=== PATIENT | female | born 2000 | race Caucasian/White ===

== ENCOUNTER 2025-01-04 16:58 | Emergency (ER) | payer OTHER, SELFPAY ==
[2025-01-04 17:00] VITALS: BP 161/98
[2025-01-04 17:20] LABS: % Basophils 0.3 % (0-2); % Eosinophils 0.6 % (0-6); % Immature Granulocytes 0.3 % (0-0.5); % Lymphocytes 43.7 % (20.5-51.1); % Monocytes 6.1 % (1.7-9.3); Absolute Lymphocytes 1.6 10^3/uL (1.2-3.4); Absolute Monocytes 0.2 10^3/uL (0.1-0.6); Absolute Neutrophils 1.8 10^3/uL (1.4-6.5); Hematocrit 38.4 % (37.0-47.0); Hemoglobin 13.1 g/dL (12.0-16.0); Mean Corp Hgb Conc. 34.1 g/dL (33.0-37.0); Mean Corpuscular Hgb 31.4 pg (27.0-31.0); Mean Corpuscular Volume 92.1 fL (81.0-99.0); Mean Platelet Volume 10.8 fL (7.4-10.4); Nucleated Red Blood Cells % 0 %; Platelet Count 186 10^3/uL (130-400); Red Blood Cell Count 4.17 10^6/uL (4.20-5.40); Red Cell Dist. Width 11.9 % (11.5-14.5); White Blood Cell Count 3.6 10^3/uL (4.8-10.8)
[2025-01-04 17:34] LABS: HCG, Serum Qualitative Screen Negative
[2025-01-04 17:37] LABS: ALT (SGPT) 14 U/L (0-35); AST (SGOT) 20 U/L (14-36); Albumin 4.9 g/dl (3.5-5.0); Alkaline Phosphatase 52 U/L (38-126); Blood Urea Nitrogen 10 mg/dl (7-17); Calcium 9.5 mg/dl (8.4-10.2); Carbon Dioxide 20 mmol/L (22-30); Chloride 107 mmol/L (98-107); Glucose 116 mg/dl (70-99); Potassium 3.7 mmol/L (3.5-5.1); Sodium 140 mmol/L (135-145); Total Bilirubin 0.7 mg/dl (0.2-1.3); Total Protein 7.3 g/dl (6.3-8.2); eGFR > 60.00
[2025-01-04 17:47] LABS: Troponin I < 0.012 ng/ml
[2025-01-04 19:50] VITALS: BP 155/96
[2025-01-04 19:51] VITALS: BMI 19.7
[2025-01-04 20:45] LABS: TSH Reflex To Free T4 3.42 uIU/ml (0.47-4.68)
[2025-01-04 20:54] VITALS: BP 139/81
--- NOTE | 2025-01-04 21:52 | ED.GENMED ---
History of Present Illness
General
Chief Complaint: Heart Rate Problem
Source: patient and family
Exam Limitations: none
Time Seen by Provider: 01/04/25 19:51
History of Present Illness
History of Present Illness:
24-year-old female who presents with concerns about her anxiety, blood pressure and heart rate. Patient states she has been dealing with this for maybe close to 2 months. She had issues back in high school with anxiety after concussion. Patient
states that for more than a month now she has been dealing with feeling very anxious with palpitations. 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 The patient admits that she spoke with her doctor who became
concerned about her high heart rate. Mom states that she has been very anxious. Mom states she had a significant anxiety attack in the waiting room. Patient states she gets intermittent palpitations but does not hyperventilate. Patient states
for the last month and have she will get some twinges of discomfort here and there that go away. No fevers. No leg swelling. No leg cramping. No shortness of breath.
Past History
Past History
ED Past Medical History: Other (Anxiety)
ED Past Surgical History: None
Phy Exam
Physical Exam
Physical Exam:
CONSTITUTIONAL Patient alert and oriented to person, place and time. Well-appearing. Vital signs reviewed.
HEAD atraumatic, normocephalic.
EYES eyelids normal to inspection, Extraocular muscles intact, Conjunctiva normal, Sclera normal.
NECK normal range of motion, Trachea midline, no jugular venous distention.
RESPIRATORY CHEST No respiratory distress noted, Chest expansion equal, Bilateral breath sounds clear.
CARDIOVASCULAR regular and tachycardic, Heart sounds normal.
ABDOMEN abdomen nontender, Bowel sounds normal. No distention.
BACK normal inspection, no obvious deformities
UPPER EXTREMITY range of motion normal, Motor strength normal, no cyanosis, no edema.
LOWER EXTREMITY range of motion normal, Motor strength normal, no cyanosis, no edema. No palpable cord
NEURO Speech normal, No focal motor deficits, [place] coma scale 15, Memory normal, Cranial Nerves intact to screening exam.
SKIN skin warm, dry, and normal in color.
Course
Orders/Labs/Results
Orders:
Orders
01/04/25 16:59
Electrocardiogram (*1) Urgent
Reason for Study: Tachycardia
EKG- Treatment ONCE
01/04/25 17:07
Test Result ONCE
01/04/25 17:12
Complete Blood Count/With Diff Urgent
Comprehensive Metabolic Panel Urgent
HCG, Serum Qualitative Screen Urgent
TSH Reflex To Free T4 Urgent
Comment: ADD ON
Troponin I Urgent
01/04/25 20:02
Add On- LAB Urgent
Tests Added?: TSH with reflex to T4
Abnormal Lab Results
01/04/25
17:12
WBC 3.6 L 10^3/uL
(4.8-10.8)
RBC 4.17 L 10^6/uL
(4.20-5.40)
MCH 31.4 H pg
(27.0-31.0)
MPV 10.8 H fL
(7.4-10.4)
Carbon Dioxide 20 L mmol/L
(22-30)
Glucose 116 H mg/dl
(70-99)
01/04/25 17:12
01/04/25 17:12
Vital Signs
Pulse: 102
Initial and Last Documented VS:
Initial Vital Signs
Temp Pulse Resp BP Pulse Ox
98.5 F 128 18 161/98 100
01/04/25 17:00 01/04/25 17:00 01/04/25 17:00 01/04/25 17:00 01/04/25 17:00
Last Documented Vital Signs
Temp Pulse Resp BP Pulse Ox
98.5 F 128 21 139/81 100
01/04/25 17:00 01/04/25 21:00 01/04/25 21:00 01/04/25 20:54 01/04/25 21:03
MDM/Problems Addressed
Differential Diagnosis Includes:
Atrial tachycardia, atrial flutter, electrolyte disturbance, PE, ACS, anxiety
MDM/Problems Addressed:
Sinus tachycardia, hypertension, anxiety
*Pulse Oximetry
Patient hypoxic: no
*EKG
Interpreted by ED Provider?: Yes
Interpretation: abnormal
Rate: tachycardiac
Rhythm: sinus
[place]: normal axis
Interval: normal interval
Ischemia: no ischemia
*Resident Athletic Trainer Interpretation
Rate: tachycardiac
Interpretation: abnormal
Rhythm: sinus
*Critical Care Note
Total Time (30-74mins, 75-104mins- exclusive of procedures): Not Applicable
Data Reviewed
Source: patient and family
Prescriptions/Medications Considered But Not Given:
Consider beta-foreign but at this time we will trial 1 thing at a time and her doctor will be starting her on Zoloft
Further Testing Considered But Not Given:
Consider D-dimer but no PE risks. No shortness of breath. No hypoxia. No tachypnea
Patient Management
Escalation/DeEscalation of care consider admission/obs:
24-year-old female who presents as described above. She been dealing this for more than a month and close to 2 months. Patient has been seeing her primary care doctor. She is only here today because her primary care doctor asked for her to be
evaluated here. Her doctor is starting her on Zoloft. The patient states she feels otherwise okay. She does state that she does perseverate over being concerned and gets anxious about that in school. During her stay on telemetry monitoring when
I was not in the room, the patient's heart rate came down to about 102. When I went in the room it climbed quickly to 130. Did not suspect an atrial tachycardia but more sinus tachycardia related to anxiety. I did advise that she can have
follow-up with cardiology if symptoms do not improve as her anxiety improves. Zoloft noted by her PCP. I will offer a little bit of benzodiazepines for as needed use which I think is reasonable. Patient was instructed and agrees to be judicious
in its use. No shortness of breath, tachypnea or hypoxia to consider pulmonary embolism. No signs of DVT. No PE risks
ED Attending Note
-
Portions of this chart may have been created with voice recognition software.� Occasional wrong word or��sound alike� substitutions may have occurred due to the inherent limitations of voice recognition software.
Discharge Plan
Departure
Patient Disposition: Home (Routine Discharge)
Date of Disposition: 01/04/25
Time of Disposition: 22:06
Patient with high blood pressure during this ER visit?: Yes
Discharge Problem:
Sinus tachycardia, Uncontrolled hypertension
Instructions: Palpitations (DC), BLOOD PRESSURE
Prescriptions:
New
lorazepam 1 mg tablet
1 mg PO TID PRN (Reason: anxiety) Qty: 14 0RF
Referrals:
Jasmin Fong MD [Family Provider] -
Activity Restrictions/Additional Instructions:
Please see your doctor in the next 2 days for follow-up and reevaluation. If your fast heart rate and high blood pressure do persist, cardiology follow-up is reasonable for further workup and evaluation. Return immediately for shortness of breath,
leg swelling, persistent chest pain, or any other concerns. Please do not drive, operate machinery or make important decisions if you do use lorazepam.
Interventions
Interventions:
*Risk Screen - Suicide Last Done: 01/04/25 17:00
*General Assessment Last Done: 01/04/25 17:00
*Neglect/Abuse Screening Last Done: 01/04/25 17:00
*ED- Fall Risk Assessment Last Done: 01/04/25 17:00
*ED COVID-19 Vaccine History Last Done: 01/04/25 17:00
ED- Cardiac Assessment Last Done: 01/04/25 19:51
ED- Pulmonary Assessment Last Done: 01/04/25 19:51
Discharge Date and Time
Print Language: LAO
[2025-01-04 22:00] VITALS: BP 127/71
== END 2025-01-04 22:15 | disposition home or self-care (01) ==
LOC: EMR 16:58
PROVIDERS: Student in an Organized Health Care Education/Training Program; EMERGENCY PHYSICIAN Emergency Medicine; FAMILY PHYSICIAN Internal Medicine
DX: R00.0 Tachycardia, unspecified (principal); I10 Essential (primary) hypertension; F41.9 Anxiety disorder, unspecified
CPT/HCPCS: 99284; 80053; 84443; 84484; 84703; 85025; 93005